=== PATIENT | female | born 1935 | race Caucasian/White ===

== ENCOUNTER 2018-01-05 11:32 | Outpatient (CLI) | payer MEDICARE ==
--- NOTE | 2018-01-05 12:30 | RAD ---
LUMBAR SPINE RADIOGRAPHS FIVE VIEWS: CLINICAL HISTORY: Prior lumbar surgery with popping sensation (M51.37). FINDINGS: There is hardware compatible with posterior fusion, which spans the L3 through the proximal sacral le vels. There is osseous demineralization. Multilevel prominent degenerative change is present. The osseous structures of the fused segmental level are not well visualized. 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 IMPRESSION: Prominent degenerative change of the postoperative lumbar spine, limited in assessment. Consider fol lowup with MRI or CT for further evaluation. POS: [facility]
--- NOTE | 2018-01-05 12:33 | RAD ---
THORACIC SPINE RADIOGRAPHS 3 VIEWS: INDICATION: Popping sensation of the back (M51.37). FINDINGS: There is prominent, multilevel degenerative change of the thoracic spine. Osseous structures are dem ineralized. There is multilevel mild height loss which may be on the basis of degenerative change an d associated accentuated thoracic kyphosis. There is atherosclerotic vascular disease. Partially im aged hardware is seen at the lumbar region. 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 POS: [facility]
== END 2018-01-05 11:33 | disposition home or self-care (01) ==
LOC: SCSRAD 11:32
PROVIDERS: ATTEND Family Medicine
DX: M51.37 Other intervertebral disc degeneration, lumbosacral region (principal); S39.92XA Unspecified injury of lower back, initial encounter; M47.894 Other spondylosis, thoracic region; M40.294 Other kyphosis, thoracic region; M47.896 Other spondylosis, lumbar region
CPT/HCPCS: 72072; 72110

== ENCOUNTER 2018-03-27 13:09 | Outpatient (CLI) | payer MEDICARE ==
--- NOTE | 2018-03-27 14:02 | RAD ---
ONE VIEW CHEST LEFT RIBS TWO VIEWS: History: Fall, pain. FINDINGS: One view chest: Atherosclerosis of the aorta. Normal cardiac silhouette. The pulmonary vessels and hilum are normal. Costophrenic angles are clear. Lungs are hyperinflated. Chronic changes are suspected. Superimposed i nfiltrate cannot be excluded. Clinical correlation is essential. 1.3 cm nodule projecting over the ri ght lower lobe. There is diffuse bone demineralization. Degenerative changes in both shoulders are no loc. No obvious rib fracture. Left ribs two views: Suboptimal evaluation due to diffuse bony demineralization. No obvious left rib fracture is appreciat ed. Additional imaging if clinically warranted. IMPRESSION: 1. Suboptimal evaluation of the osseous structures due to diffuse bony demineralization. No definite pneumothorax. 2. No definite rib fractures. Additional imaging if warranted. 3. Hypoinflation with chronic changes. 4. Focal nodule in the right lower lobe as described above. Code LN POS: [facility]
--- NOTE | 2018-03-27 14:16 | RAD ---
LEFT SCAPULA 2 VIEWS: Date: 03/27/18 HISTORY: Fall. Pain. COMPARISON: None. FINDINGS: Diffuse bone demineralization. No obvious scapula fracture. There is chronic degenerative change at t he left shoulder. IMPRESSION: 1. No definite fracture. 2. Diffuse bone demineralization. POS: [facility]
== END 2018-03-27 13:10 | disposition home or self-care (01) ==
LOC: SCSRAD 13:09
PROVIDERS: ATTEND Family Medicine
DX: M89.8X1 Other specified disorders of bone, shoulder (principal); R07.81 Pleurodynia; M85.80 Other specified disorders of bone density and structure, unspecified site; R91.8 Other nonspecific abnormal finding of lung field

== ENCOUNTER 2018-04-04 10:06 | Outpatient (CLI) | payer MEDICARE ==
[2018-04-04 11:42] LABS: Estimated GFR-MDRD - POC Greater than 90
--- NOTE | 2018-04-04 13:56 | CT ---
CHEST CT WITH CONTRAST: DATE: 04/04/18. COMPARISON: None. HISTORY: Right lower lobe pulmonary nodule identified on prior radiograph. TECHNIQUE: Serial axial CT imaging is obtained at 5 mm intervals from the thoracic inlet through the upper abdom en with IV contrast. Coronal reformatted imaging obtained. FINDINGS: The left lobe of the thyroid gland appears surgically absent. No axillary, mediastinal, or hilar lymphadenopathy noted. Imaged upper abdomen grossly unremarkable aside from scattered atherosclerotic calcification of the a bdominal aorta and its branches. There is scattered atherosclerotic calcification of the thoracic aorta and the coronary arteries. No pleural, pericardial, or mediastinal fluid is noted. There is no pneumothorax noted on either side. There is a nodule identified in the right lower lobe inferomedially measuring in the 8-10 mm range, b est seen on axial image 52 and coronal image 91. This does not correlate with the findings seen on r ecent radiograph. There are increased linear interstitial densities noted in both lung bases, mild. There is a tiny lateral right lower lobe nodule on image 37 measuring 3 mm. No additional pulmonary parenchymal nodule identified. There are prominent degenerative changes noted involving bilateral shoulders. There is an age-indeterminate fracture involving the posterior left 5th rib. There is an acute poste rolateral left 6th rib fracture noted as well. IMPRESSION: 1. Nodule in the inferomedial right lower lobe measuring in the 8-10 mm range. Recommend followup C T examination in 6 months. 2. No discrete nodule noted in the right lower lobe to correlate with the findings seen on recent ra diograph. 3. Left-sided rib fractures with no evidence for pneumothorax. CODE T POS: [facility]
== END 2018-04-04 10:07 | disposition home or self-care (01) ==
LOC: SCSCT 10:06
PROVIDERS: ATTEND Family Medicine
DX: R91.1 Solitary pulmonary nodule (principal); S22.42XA Multiple fractures of ribs, left side, initial encounter for closed fracture
CPT/HCPCS: 71260; 82565

== ENCOUNTER 2018-04-08 16:20 | Emergency (ER) | payer MEDICARE ==
--- NOTE | 2018-04-08 17:49 | RAD ---
RIGHT HIP TWO VIEWS: History: Fall three weeks ago. Pain. Comparison: None. FINDINGS: There are degenerative changes of the right hip. Contour of the femoral head is maintained. No obviou s fracture. IMPRESSION: No fracture. Evaluation is limited by diffuse bony demineralization. If the patient is unable to bear weight, consider MRI, barring any contraindications. POS: [facility]
--- NOTE | 2018-04-08 20:11 | RAD ---
TWO VIEW RIGHT FEMUR SERIES FOUR VIEWS: Indication: History of fall, pain. FINDINGS: Right knee prosthesis is visualized. There is no acute fracture of the right femur. Partially imaged hardware is seen at the lumbosacral junction. Serpiginous lucencies overlying the superior and inferi or right pubic rami are favored to reflect superimposed artifactual, mach lines. IMPRESSION: No definite acute fracture of the right femur. POS: [facility]
--- NOTE | 2018-04-08 21:13 | CT ---
CT OF PELVIS NONCONTRAST: Clinical history: Right sided pelvic pain. Head pain. History of recent fall. FINDINGS: There are scattered degenerative changes. There is surgical hardware and fusion spanning the lower vane mbar and sacral spine. There is osseous demineralization. Incidental note of prominent vascular disea se. There is tortuosity and ectasia of the abdominal aorta. There is prominent retained fecal materia l throughout the colon. The uterus is atrophic. IMPRESSION: 1. No discrete evidence for acute pelvic fracture. 2. Additional findings as detailed above. POS: [facility]
== END 2018-04-08 20:55 | disposition home or self-care (01) ==
LOC: ERS 16:20
DX: M25.551 Pain in right hip (principal); G83.4 Cauda equina syndrome; F41.9 Anxiety disorder, unspecified; W19.XXXA Unspecified fall, initial encounter; Z79.899 Other long term (current) drug therapy
CPT/HCPCS: 72192

== ENCOUNTER 2018-10-11 13:01 | Outpatient (CLI) | payer MEDICARE ==
[2018-10-11 13:31] LABS: Estimated GFR-MDRD - POC Greater than 90
--- NOTE | 2018-10-11 15:13 | CT ---
CT OF CHEST PERFORMED WITH IV CONTRAST ENHANCEMENT: Date: 10/11/18 HISTORY: Follow-up of right lower lobe pulmonary nodule. COMPARISON: CT examination of 04/04/18. FINDINGS: There is some biapical parenchymal scarring which appears stable. A 3 mm pulmonary nodule which is james bpleural in location in the right lower lobe seen on axial image 36 is stable. There is an 8.0 mm nod ule seen in the inferior medial right lower lobe on the prior examination that measured 8.0 mm. There is not a true nodule present in this area on this examination. It is best seen on axial image 15 and just appears to represent more of an area of linear scarring. There is a pleural based nodule which has developed since the left lower lobe, which measures approxi mately 2.0 cm in size. There was no density present on the prior examination in this location. This w ould suggest that it is possibly acute in nature, although has a somewhat mass-like appearance. No significant mediastinal or hilar lymphadenopathy is noted. Right paratracheal nodes are subcentime ter in size and stable. No significant axillary adenopathy. Visualized liver parenchyma shows no focal findings. Right and left adrenal glands are normal. Healed left-sided rib fractures are seen. IMPRESSION: 1. Development of a new pleural based, 2.0 cm, left lower lobe pulmonary nodule. It is somewhat unus ual that a nodule of this size would develop since the March examination. This may represent some type of acute process, but it does have a somewhat mass-like appearance. The possibility that this represe nts some type of infiltrate or rounded atelectasis would be considerations. I would recommend a short -term follow-up chest CT after appropriate therapy in perhaps 3-4 weeks. I do not believe that this d ensity would be easily visible by routine chest x-ray. 2. The 8.0 mm nodular density seen in the inferomedial aspect of the right lower lobe is essentially gone. There is only some linear parenchymal change in this area. 3. Stable appearance to a 3.0 mm right lower lobe pulmonary nodule. POS: [facility]
== END 2018-10-11 13:02 | disposition home or self-care (01) ==
LOC: SCSCT 13:01
PROVIDERS: ATTEND Family Medicine
DX: R91.1 Solitary pulmonary nodule (principal); R91.8 Other nonspecific abnormal finding of lung field
CPT/HCPCS: 71260; 82565

== ENCOUNTER 2019-03-13 14:46 | Outpatient (CLI) | payer MEDICARE ==
--- NOTE | 2019-03-13 15:18 | RAD ---
2 views of chest: 03/13/2019 COMPARISON: None HISTORY: Dyspnea FINDINGS: Exaggerated thoracic kyphosis noted. Lung apices are slightly obscured medially by the isi ent's chin. There are prominent degenerative changes involving bilateral glenohumeral joints. There is increased linear interstitial density and pulmonary hyperinflation, suggesting COPD in the proper clinical setting. There is atherosclerotic calcification of the aortic arch. There is no focal consolidation or alveolar edema. IMPRESSION: Chronic findings as described above. No acute findings are seen.
== END 2019-03-13 14:47 | disposition home or self-care (01) ==
LOC: RAD 14:46
PROVIDERS: ATTEND Internal Medicine Pulmonary Disease
DX: R06.00 Dyspnea, unspecified (principal)
CPT/HCPCS: 71046

== ENCOUNTER 2019-04-12 12:00 | Outpatient (CLI) | payer MEDICARE ==
[~2019-04-12 12:00] MED LIST: Iopamidol 370 76% 100 ML VIAL ONE
[2019-04-12 13:50] LABS: Estimated GFR-MDRD - POC Greater than 90
--- NOTE | 2019-04-12 14:23 | CT ---
Exam: CHEST CT WITH CONTRAST: COMPARISON: 10/11/2018, 04/04/2018. HISTORY: Pulmonary nodule. Follow-up. FINDINGS: No mediastinal mass, lymphadenopathy, or hematoma. Heart size is within normal limits. No significant pericardial fluid. There are coronary artery calcifications. Visualized aorta has a normal caliber. Atherosclerosis is identified. Visualized upper solid organs are unremarkable. 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 Adequate contrast opacification of the pulmonary arterial system to the level of the central arteri es. No filling defect. There appears to be chronic change involving the right shoulder with a complex stable soft tissue flu id collection as well as joint fluid. Trachea and central bronchi are patent. Right lung: Chronic changes in the lung apex. Triangular-shaped nodule at the lateral aspect of the r ight lower lobe measuring 0.4 x 0.3 cm, second nodule measuring 0.3 cm in maximum dimension, and third nodule measuring approximately 0.2 cm in maximum dimension.. No suspicious masses, consolidatio n in the right lung. Left lung: Chronic changes in the left upper lobe. Scar and atelectasis in the left lower lobe. Previ ously noted 2 cm mass in the left lower lobe has essentially resolved. Currently, there is a residual 1.0 x 0.4 cm linear opacity likely representing lung parenchymal scarring. No suspicious mas ses or consolidation in the left lung. Old left rib fractures are noted. IMPRESSION: 1. Interval resolution of a previously noted mass-like opacity in the left lower lobe. Currently, trevor ear opacification remains suggesting scar formation. No suspicious nodules in the left or right lung. 2. Chronic changes involving the right shoulder. Transcribed Date/Time: 04/12/2019 3:15 PM
== END 2019-04-12 12:01 | disposition home or self-care (01) ==
LOC: CT 12:00
PROVIDERS: ATTEND Internal Medicine Pulmonary Disease
DX: R91.1 Solitary pulmonary nodule (principal); R91.8 Other nonspecific abnormal finding of lung field
CPT/HCPCS: 71260; 82565

== ENCOUNTER 2019-08-28 16:51 | Outpatient (CLI) | payer MEDICARE ==
--- NOTE | 2019-08-28 18:10 | RAD ---
THREE VIEWS OF THE LEFT HAND: 08/28/19 COMPARISON: None. HISTORY: Injury, trauma, pain. FINDINGS: There is degenerative change involving the distal radioulnar joint, the radiocarpal joint, and the fi rst carpometacarpal joint. There is an obliquely oriented nondisplaced acute fracture involving the f ifth metacarpal shaft in the mid shaft/proximal shaft region. There are scattered degenerative change s involving the distal and proximal interphalangeal joint of the second through fifth fingers. IMPRESSION: Obliquely oriented nondisplaced fracture of the fifth metacarpal shaft. Multilevel degenerative clemente e. POS: [facility]
== END 2019-08-28 16:52 | disposition home or self-care (01) ==
LOC: SCSRAD 16:51
PROVIDERS: ATTEND Family Medicine
DX: S69.92XA Unspecified injury of left wrist, hand and finger(s), initial encounter (principal); M19.042 Primary osteoarthritis, left hand; S62.357A Nondisplaced fracture of shaft of fifth metacarpal bone, left hand, initial encounter for closed fracture